=== PATIENT | female | born 1960 | race Caucasian/White ===

== ENCOUNTER 2019-03-16 19:16 | Emergency (ER) | payer BC ==
[~2019-03-16] VITALS: Ht 167.6 cm; Wt 59.1 kg
[~2019-03-16 19:16] MED LIST: MUPI22OI2 TOP
[2019-03-16 19:19] VITALS: BP 120/64; PULSE 76; RESP 20; Ht 167.6 cm; Wt 59.1 kg
--- NOTE | 2019-03-17 05:04 | ERD ---
ER Documentation Chief Complaint Chief Complaint pt c/o right eye pain with irritation x 1 week; denies vision problems HPI 58-year-old very pleasant female presents to the ED complaining of right lower eyelid pain x1 week. Patient states she has been itching and scratching the area over the past few days. She reports she noticed swelling to her right lower eyelid which has been getting progressively worse with the past 3 days. She reports a "burning" type sensation and lichenification to her lower eyelid. She denies any ocular pain. No foreign body. No conjunctival injection or discharge. No fevers or chills. No changes in vision. No trauma. No history of dermatitis or skin issues. ROS All systems reviewed and are negative except as per history of present illness. Medications Home Meds Active Scripts Mupirocin* (Bactroban*) 2% -22 Gram Oint...g., 1 APPLIC TOP TID for 7 Days, EA Prov:MARKCATALINA Gaviria PA-C 03/16/19 Allergies Allergies: Coded Allergies: No Known Allergy (Unverified , 03/16/19) PMhx/Soc History of Surgery: Yes (CS,TA.) Anesthesia Reaction: No Hx Neurological Disorder: No Hx Respiratory Disorders: No Hx Cardiac Disorders: No Hx Psychiatric Problems: No Hx Miscellaneous Medical Probl: No Hx Alcohol Use: Yes (OCCASIONAL DRINKER.) Hx Substance Use: No Hx Tobacco Use: No Smoking Status: Never smoker FmHx Family History: No diabetes Physical Exam Vitals Vital Signs Date Temp Pulse Resp B/P (MAP) Pulse Ox O2 O2 Flow FiO2 Time Delivery Rate 03/16/19 98.4 76 20 120/64 99 19:19 (82) Physical Exam Const: No acute distress Head: Atraumatic Eyes: EOMI. PERRL. No pain w/ extraocular movements. No conjunctival inject ion or discharge. No appreciable foreign body. + Mild swelling of the right lower eyelid with lichenification. No upper eyelid swelling. Left eyelids normal. ENT: Normal External Ears, Nose and Mouth. Neck: Full range of motion. No meningismus. Skin: No petechiae or rashes Neur: Awake and alert Psych: Normal Mood and Affect Procedures/MDM MEDICAL DECISION MAKIN-year-old female presents with right lower eyelid pain and swelling. Patient is afebrile and nontoxic appearing. She has no evidence of periorbital/orbital cellulitis. She has no evidence of conjunctivitis. She appears to have a sort of dermatitis to her right lower eyelid. I will cover prophylactically with topical antibiotics to prevent risk of secondary infection which is likely, given that patient has been scratching/rubbing her eyelid recurrently. She was given referrals to an electric melt operator to follow-up within next week. Strict return precautions were discussed. PRESCRIPTIONS: Mupirocin SPECIALIST FOLLOW UP RECOMMENDED: Edger Saw Operator Departure Diagnosis: Primary Impression: Dermatitis Condition: Stable Patient Instructions: Dermatitis, Non-Specific Referrals: [facility] Hours: Tue - Tue 9:00 AM - 5:00 PM Additional Instructions: YOU MUST SEE AN EYE DOCTOR NEXT WEEK. USE THE MEDICATIONS PRESCRIBED. RETURN HERE SOONER FOR ANY INCREASED SWELLING, CHANGES IN VISION OR ANY OTHER CONCERNS. CATALINA FLORES PA-C Mar 17, 2019 05:04
== END 2019-03-16 20:15 | disposition home or self-care (01) ==
LOC: FTE 19:16
DX: L30.9 Dermatitis, unspecified (principal)
CPT/HCPCS: 99283